=== PATIENT | male | born 1985 | race Caucasian/White ===

== ENCOUNTER 2020-06-07 18:10 | Emergency (ER) | payer MEDICARE, MEDICAID, SELFPAY ==
[2020-06-07 18:11] VITALS: BP 158/88; PULSE 94; RESP 16; TEMP 36.2; O2SAT 99; BMI 23.8
--- NOTE | 2020-06-07 18:27 | ED.RN ---
DRUG DATABASE SCREEN COMPLETED. [facility] WILL REQUEST DRUG SCREENING, OTHERWISE IT IS NOT REQUIRED.
--- NOTE | 2020-06-07 18:34 | ED.VIS.GEN ---
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 pain was direct related to that type of activity the pain is persisted. He has had no numbness weakness paresthesias no bowel or bladder complaints presents for evaluation. He has no history of lumbar back ailment, he has a deformity involving his left upper extremity related prior seizure disorder Past Medical History - Allergies and Home Meds Allergies/Adverse Reactions: Allergies No Known Allergies Allergy (Verified 06/07/20 18:11) Primary Care Physician: Pato Guthrie MD [Primary Care Provider] - Past Medical History: - - Your disorder deformity to left upper extremity Smoking Status: Former smoker Review of Systems General: Reports: - - Lumbar back pain only. Denies: Chills, Fever, Sweats Eyes: Denies: Visual changes - bilaterally, Diplopia ENT: Denies: Rhinorrhea, Sore throat Cardiovascular: Denies: Chest pain, Palpitations Respiratory: Denies: Dyspnea, Cough, Dyspnea on exertion Gastrointestinal: Denies: Abdominal pain, Nausea, Vomiting, Diarrhea, Melena, Hematochezia Genitourinary: Denies: Dysuria, Hematuria, Frequency Musculoskeletal: Denies: Back pain, Extremity Pain Skin: Denies: Rash, Wounds Neurological: Denies: Headache, Weakness, Numbness Physical Exam Vital Signs/Narrative: Vital Signs Temp Pulse Resp BP Pulse Ox 06/07/20 18:11 97.2 F L 94 16 158/88 H 99 General: Well nourished, Well developed, No Acute Distress Head: Normocephalic, Atraumatic Eyes: Perrl, EOMI ENT: Moist mucous membranes, No rhinorrhea Neck: Supple, Nontender Cardiovascular: Regular rate, Regular rhythm, No murmurs Respiratory: No distress, CTA bilaterally, Chest nontender Abdomen: Soft, Nontender, Nondistended, Normal bowel sounds Back: Normal Inspection, - - Very nonspecific discomfort to the lumbar back area there is no central discomfort, no bruising no contusion no redness or warmth the rest of the spine is unremarkable is able to stand and walk without difficulty heel raise toe raise knee bend no difficulty no radiation no signs of cauda equina, he Extremities: Nontender, No edema Skin: Normal color, No rash Neurological: Alert, Oriented x3, Cranial nerves II-XII grossly intact, Normal Strength, Normal Sensation Psychological: Normal affect, Normal Mood Diagnostic/Tx/Re-eval - Medical Decision Making I had a long conversation with him he has no urinary symptoms no fever no red flag cauda equina type signs he is comfortable with discharge on Toradol Naprosyn follow-up with outpatient providers in a few days return for change in symptoms he will avoid heavy lifting Home stable Final impression lumbar back pain after lifting ED Disposition - Plan for ED Patient: Diagnosis: Lumbar Back pain Instructions: ED Back Spasm, No Trauma Prescriptions: Naproxen [Naprosyn] 500 mg PO BID PRN #20 tab Prescription Printed Referrals: Pato Guthrie MD [Primary Care Provider] -
[2020-06-07] MEDS: Ketorolac 60 MG/2 ML Vial IM (18:38)
== END 2020-06-07 18:57 | disposition home or self-care (01) ==
PROVIDERS: Emergency Provider Emergency Medicine; PCP Family Medicine
DX: M54.5 Low back pain (principal); G40.909 Epilepsy, unspecified, not intractable, without status epilepticus; Z79.899 Other long term (current) drug therapy; Z87.891 Personal history of nicotine dependence
CPT/HCPCS: 96372; 99282

== ENCOUNTER 2021-12-26 15:58 | Emergency (ER) | payer MEDICARE, MEDICAID, SELFPAY ==
[2021-12-26 15:59] VITALS: BP 138/90; PULSE 107; RESP 16; TEMP 36.6; O2SAT 98; BMI 22.7
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
[2021-12-26 19:21] VITALS: RESP 18
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
== END 2021-12-26 19:22 | disposition home or self-care (01) ==
PROVIDERS: Emergency Provider Emergency Medicine; PCP Family Medicine; Visit Provider Emergency Medicine
DX: S00.83XA Contusion of other part of head, initial encounter (principal); Y04.8XXA Assault by other bodily force, initial encounter; Z79.899 Other long term (current) drug therapy; Z87.891 Personal history of nicotine dependence
CPT/HCPCS: 70486; 99283

== ENCOUNTER 2024-02-28 11:30 | Outpatient (RCR) | payer MEDICARE, MEDICAID, SELFPAY ==
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
--- NOTE | 2024-02-28 12:06 | HP.OTDCSUM ---
Discharge Summary D/C Summary: It has been my pleasure to treat EDWIN BERGER under orders from BENSON MONTGOMERY, for the diagnosis of Dr Velasquez (surgeon) for a total of 14 visit(s). Please see the following information for a summary of their discharge status. 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 progressing Goal:: pt to demo decreased overall pain in L wrist at post op points to 2/10 during work tasks. goal met Goal:: pt to demo decreased pain and sensitivity to volar scar with no more than 2/10 pain/discomfort following scar mtg techniques with good carryover at home. goal met Goal:: pt demo ability to complete UB/LB dressing tasks with bilateral hands using adaptive tech as needed at mod I level to address pt's goals of completing bilateral tasks. goal met Plan Plan: D/C D/C Information Discharge Comments: pt was seen for OT session following a left wrist fusion- pt to use carrot hand protector at night to prevent skin break down- was ed. on PROM to decrease tightness of left hand- pt demo understanding. pt agrees with d/c d/c sentence: If there are questions or concerns regarding this patient's occupational therapy, please fell free to call me at [phone]. Thank you for the referral of this patient. Sincerely, Serena Valerio, OTR/L, CHT
== END 2024-02-28 19:00 | disposition home or self-care (01) ==
LOC: OT 11:30
PROVIDERS: PCP Family Medicine
DX: Z98.890 Other specified postprocedural states (principal)
CPT/HCPCS: 97140; 97166; 97530; 97760

== ENCOUNTER 2024-04-23 11:30 | Outpatient (RCR) | payer MEDICARE, MEDICAID, SELFPAY ==
--- NOTE | 2024-03-12 12:58 | HP.PTEVAL ---
Patient's Visit Information Visit Information Visit Information: EDWIN BERGER is a 39 year old M referred to Physical Therapy by Dr. Mina Segovia DPM with a diagnosis of RIGHT AND LEFT ACHILLES TENDONITIS. Date of Evaluation: 03/12/24 Physical Therapist: Vinh Bledsoe, PT, Cert MDT, OCS Visit Plan Frequency: 2-3x /Week Duration: 6 Weeks Plan: PT INTERVENTIONS ROM/FLEXABILITY G-S, US ,MANUAL THERAPY STM CALF/PF ( HAWK/STICK),STRENGTHENING ANKLES AND US Subjective Subjective: This 39 y/o male presents to physical therapy with right and left achilles tendonitis . Patient has pain left achilles tendonitis right > left. Patient seen DR and had cortisone injection and had x-rays in past.Patient pain located calcaneal foot. Patient doesn't uses orthotics, patient did have orthotics 2 years ago. Aggravating factors walking ,standing. Alleviating factors rest. Denies paresthesia/tingling -. Patient pain causes deficits with ADL and housework tasks and standing part naya at job demands. Patient goals to decrease pain. SOCIAL: VOCATION: [employer] Pain Right Foot: Pain Intensity (Out of 10): 5 Pain Intensity Range: 10 Objective Objective: POSTURE: bilateral pes planus ,calcaneal valgus ankle PALPATION: tender plantar fascia ,plantar calcaneal NEURO: denies parestehesia/tingling GAIT: ambulates with reciprocal pattern mild decrease dewayne AROM: ankle dorsiflexion 5 from 0 right ,left 0 degrees , plantarflexion 60 degrees , eversion 5 degrees ,inversion 35 MMT: ankle stabilizers 4/5 anterior tibialis ,peroneus ,posterior tibialis ,G-S 4-/5 Balance/Special Test Scores Lower Extremity Functional Score: 39 Goals Goal 1:: Patient to be I with HEP ankle Goal Time Frame: 4-6 Weeks Goal 2:: Patient to normalize gait with less pain by 60% Goal Time Frame: 4-6 Weeks Goal 3:: Patient to improve AROM dorsiflexion by 5 degrees to improve gait Goal Time Frame: 4-6 Weeks Goal 4:: Patient to improve LFES score by 5 points to improve QOL Goal Time Frame: 4-6 Weeks Goal 5:: Patient to demonstrate 50% improvement with less pain and improved gait Goal Time Frame: 4-6 Weeks Rehabilitation Potential Physical Therapy Diagnosis: This patient has bilateral achilles tendonitis right > left affects walking ,decrease ROM thus benefit from skilled PT Rehabilitation Potential: Fair Anticipated Interventions Patient/Client Instruction: Educate patient on: Condition and Plan of Care For the Purpose of:: To decrease pain, To increase ROM, To improve muscle performance and motor function, To improve ability to perform ADL's, To increase tolerance to activity/condition/position, To improve ability of physical actions for home/community/work/leisure, To improve gait and locomotor functions, To improve health of tissue, To decrease soft tissue restriction, To increase flexibility/ROM, To improve endurance, To improve balance, To assume or resume ADL's, To improve self management and To improve tolerance to ADL's Therapeutic Exercise to Include: Strength training, Balance training, Flexibilty training and Active ROM Comment: PLANATAR FASCIA For the Purpose of:: To decrease pain, To increase ROM, To improve muscle performance and motor function, To improve ability to perform ADL's, To increase tolerance to activity/condition/position, To improve ability of physical actions for home/community/work/leisure, To improve gait and locomotor functions, To improve health of tissue, To decrease soft tissue restriction and To increase flexibility/ROM Manual Therapy Techniques to Include: Mobilization and Soft tissue mobilization For the Purpose of:: To decrease pain, To increase ROM, To improve nutrient delivery to tissue, To increase oxygenation perfusion, To improve health of tissue and To decrease soft tissue restriction Ultrasound (thermal/non thermal): Yes For the Purpose of:: To decrease pain, To increase ROM, To improve nutrient delivery to tissue, To increase oxygenation perfusion, To improve health of tissue and To decrease soft tissue restriction Text: Thank you for the opportunity to evaluate your patient. For Medicare and Medicare HMO plans, please review the plan of care and approve it. It will need to be FAXED BACK to us at [phone] for Medicare purposes. For Medicare only, by signing this I certify the plan of care. Please let me know if there are questions or concerns regarding this plan of care. Physician Signature: Date:
--- NOTE | 2024-04-23 11:55 | HP.PTDCSUM ---
Discharge Summary D/C summary: It has been my pleasure to treat EDWIN BERGER referred by Dr. Mina Segovia DPM, with the diagnosis of RIGHT AND LEFT ACHILLES TENDONITIS for a total of 7 visit(s). Discharge Date: Please see the following information for a summary of their discharge status. Subjective Subjective: Still the right side hurting mostly. Pain Right Foot: Pain Intensity (Out of 10): 4 Objective Objective/Function: No increase in pain with stretches and eccentric exercises. US for pain modulation. Goals Goal 1:: Patient to be I with HEP ankle Goal 2:: Patient to normalize gait with less pain by 60% Goal 3:: Patient to improve AROM dorsiflexion by 5 degrees to improve gait Goal 4:: Patient to improve LFES score by 5 points to improve QOL Goal 5:: Patient to demonstrate 50% improvement with less pain and improved gait Plan Plan: PT INTERVENTIONS ROM/FLEXABILITY G-S, US ,MANUAL THERAPY STM CALF/PF (HAWK/STICK), STRENGTHENING ANKLES AND US D/C Information d/c sentence: If there are questions or concerns regarding this patient's physical therapy, please feel free to call me at [phone]. Thank you for the referral of this patient. Sincerely, Vinh Bledsoe, PT, Cert MDT, OCS Balance/Gait/Functional tests Balance/Special Test Scores Lower Extremity Functional Score: 39
--- NOTE | 2024-04-23 11:58 | HP.PTDCSUM ---
Discharge Summary D/C summary: It has been my pleasure to treat EDWIN BERGER referred by Dr. Mina Segovia DPM, with the diagnosis of RIGHT AND LEFT ACHILLES TENDONITIS for a total of 8 visit(s). Discharge Date: Please see the following information for a summary of their discharge status. Subjective Subjective: Doing okay but work alot this weekend Pain Right Foot: Pain Intensity (Out of 10): 4 Overall Improvement % Improvement: 10 Objective Objective/Function: POSTURE: bilateral pes planus ,calcaneal valgus ankle PALPATION: tender plantar fascia ,plantar calcaneal NEURO: denies parestehesia/tingling GAIT: ambulates with reciprocal pattern mild decrease dewayne AROM: ankle dorsiflexion 5 from 0 right ,left 0 degrees , plantarflexion 60 degrees , eversion 5 degrees ,inversion 35 MMT: ankle stabilizers 4/5 anterior tibialis ,peroneus ,posterior tibialis ,G-S 4-/5 Goals Goal 1:: Patient to be I with HEP ankle Goal Progress: Progressing Goal 2:: Patient to normalize gait with less pain by 60% Goal Progress: Not Progressing Goal 3:: Patient to improve AROM dorsiflexion by 5 degrees to improve gait Goal Progress: Progressing Goal 4:: Patient to improve LFES score by 5 points to improve QOL Goal Progress: Progressing Goal 5:: Patient to demonstrate 50% improvement with less pain and improved gait Goal Progress: Progressing Plan Plan: D/C TO HEP AND D/C Information d/c sentence: If there are questions or concerns regarding this patient's physical therapy, please feel free to call me at [phone]. Thank you for the referral of this patient. Sincerely, Vinh Bledsoe, PT, Cert MDT, OCS Balance/Gait/Functional tests Balance/Special Test Scores Lower Extremity Functional Score: 39 Improvement % Improvement: 10
== END 2024-04-23 19:00 | disposition home or self-care (01) ==
LOC: PT 11:30
PROVIDERS: PCP Family Medicine; Referring Provider Podiatrist Foot & Ankle Surgery; Visit Provider Podiatrist Foot & Ankle Surgery
DX: M67.01 Short Achilles tendon (acquired), right ankle (principal); M67.02 Short Achilles tendon (acquired), left ankle
CPT/HCPCS: 97035; 97110; 97140; 97161